=== PATIENT | female | born 1930 | race Hispanic/Latino ===

== ENCOUNTER 2021-04-24 13:36 | Outpatient (CLI) | payer MEDICARE, MEDICAID | END 2021-04-24 13:37 | disposition home or self-care (01) | LOC: BICRAD 13:36 | PROVIDERS: ATTEND Family Medicine | DX: M25.511 Pain in right shoulder (principal) ==

== ENCOUNTER 2021-05-07 06:57 | Outpatient (CLI) | payer MEDICARE, MEDICAID | END 2021-05-07 06:58 | disposition home or self-care (01) | LOC: BICULT 06:57 | PROVIDERS: ATTEND Family Medicine | DX: M25.511 Pain in right shoulder (principal); R10.13 Epigastric pain; N28.1 Cyst of kidney, acquired; Z90.49 Acquired absence of other specified parts of digestive tract | CPT/HCPCS: 76700 ==